=== PATIENT | female | born 1985 | race Caucasian/White ===

== ENCOUNTER 2023-01-16 20:53 | Emergency (ER) | payer OTHER, SELFPAY ==
--- NOTE | ~2023-01-16 | XR_ITS ---
EXAMINATION: XR chest 2V DATE: 01/16/2023 21:30 INDICATION: Chest pain and shortness of breath TECHNIQUE: PA and lateral views of the chest are obtained. COMPARISON: None available FINDINGS: The lungs are free of acute opacities. No pleural effusion or pneumothorax. The cardiomedia stinal silhouette is normal. The visualized bones and soft tissues are unremarkable. IMPRESSION: 1. No acute cardiopulmonary abnormality. Reviewed, dictated and finalized at location F.
--- NOTE | ~2023-01-16 | XR_ITS ---
AP and lateral views of the right tibia/fibula Clinical History: Trauma Findings: No acute fracture or dislocation is seen. Osseous alignment is anatomic. Joint spaces are p reserved without significant erosive or degenerative change. Soft tissues are unremarkable. Impression: Unremarkable right tib-fib radiographs. Reviewed, dictated and finalized at [facility]. Impression: Unremarkable right tib-fib radiographs.
--- NOTE | ~2023-01-16 | CT_ITS ---
Noncontrast CT scan of the cervical spine Technique: Multiple contiguous axial [address] images of the cervical spine were obtained and rec onstructed in 2D sagittal and coronal planes on the acquisition scanner. Dose reduction technique was used on this scan by utilizing automated exposure control, adjustment of the mA and/or kV according to patient size. The dose-length product (DLP) was 168.58 mGy-cm. Clinical History: Pain Findings: No fractures or dislocations. Unremarkable visualized bony structures. The intervertebral disc spaces are preserved. No prevertebral soft tissue swelling. Impression: No fracture or subluxation of the cervical spine. Reviewed, dictated and finalized at location M. Impression: No fracture or subluxation of the cervical spine.
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
[2023-01-16 20:59] VITALS: PULSE 79; RESP 19; TEMP 36.8; O2SAT 100
[2023-01-17] VITALS (7 sets, daily range): BP systolic 103–126; BP diastolic 53–81; PULSE 59–85; RESP 12–20; TEMP 36.8; O2SAT 95–100
--- NOTE | 2023-01-17 02:01 | ECG_ITS ---
Measurements Intervals [place] Rate: 60 P: 65 WI: 114 QRS: 9 QRSD: 90 T: 28 QT: 427 QTc: 429 Interpretive Statements SINUS RHYTHM WITH SHORT WI INTERVAL WITH OCCASIONAL VENTRICULAR PREMATURE COMPLEXES ANTEROSEPTAL ST T-WAVE ABNORMALITY, CONSIDER ISCHEMIA ABNORMAL ECG NO PREVIOUS ECG AVAILABLE FOR COMPARISON Electronically Signed On 01-17-2023 10:31:37 CDT by Kristian Kilgore M.D.
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
[2023-01-17] MEDS: HYDROcodone/acetaminophen (*CRX) 5-325 MG TABLET 1 TAB PO (02:23)
[2023-01-17 02:56] LABS: Troponin I < 0.012 ng/mL (0.000-0.034)
== END 2023-01-17 06:49 | disposition home or self-care (01) ==
PROVIDERS: Physician Assistant; Emergency Provider Emergency Medicine; PCP Family Medicine
DX: M54.2 Cervicalgia (principal); R07.81 Pleurodynia; V43.52XA Car driver injured in collision with other type car in traffic accident, initial encounter
CPT/HCPCS: 36415; 71046; 71250; 72125; 73590; 73630; 81025; 84484; 93005; 99284; A9270; L0140

== ENCOUNTER 2023-10-10 09:12 | Emergency (ER) | payer OTHER, SELFPAY ==
[2023-10-10 09:22] VITALS: BP 117/65; PULSE 104; RESP 16; TEMP 36.4; O2SAT 100
[2023-10-10 09:37] LABS: Basophils Percent Auto 0.1 % (0.2-1.2); Eosinophils Absolute Auto 0.1 K/mm3 (0-0.3); Eosinophils Percent Auto 1.6 % (0-4.4); Hematocrit 39.2 % (37.0-47.0); Immature Granulocyte Absolute 0.02 K/mm3 (0.00-0.031); Immature Granulocyte Percent A 0.3 % (0-0.5); Lymphocytes Absolute Auto 1.44 K/mm3 (0.9-3.2); Lymphocytes Percent Auto 20.7 % (18.3-44.2); Mean Corpuscular HGB Conc 33.2 g/dl (32-36); Mean Corpuscular Hemoglobin 30.5 pg (26-34); Mean Platelet Volume 10.9 fl (7.4-10.4); Monocytes Absolute Auto 0.3 K/mm3 (0.1-0.6); Monocytes Percent Auto 4.9 % (2.6-8.5); Neutrophils Percent Auto 72.4 % (45.5-73.1); Platelet Count Result 198 k/mm3 (150-375); Red Blood Count 4.26 M/mm3 (4.2-5.4); Red Cell Distribution Width 12.8 % (11.5-14.5)
[2023-10-10 09:49] LABS: Alanine Aminotransferase 20 U/L (6-35); Albumin Level 4.5 g/dL (3.5-5.1); Alkaline Phosphatase 50 U/L (38-126); Anion Gap 8 mmol/L (4-12); Aspartate Amino Transferase 28 U/L (14-36); Bilirubin,Total 0.4 mg/dL (0.2-1.3); Blood Urea Nitrogen 9 mg/dL (7-17); Calcium 9.1 mg/dL (8.4-10.2); Carbon Dioxide 24 mmol/L (22-30); Chloride 105 mmol/L (98-107); Estimated CRCL calculation 92 ml/min; Estimated Glomerular Filt Rate > 60; Glucose 78 mg/dL (65-110); Lipase 89 U/L (23-300); Potassium 3.4 mmol/L (3.4-5.0); Sodium 137 mmol/L (137-145)
[2023-10-10] MEDS: SODIUM CHLORIDE 0.9% IV 1,000 ML 999 ML IV CONT (10:47)
[2023-10-10] MEDS: METOCLOPRAMIDE HCL INJ 10 MG/2 ML VIAL IV PUSH (10:48)
[2023-10-10 11:15] LABS: Appearance Urine Clear (Clear); Bilirubin Urine Negative (Negative); Blood Urine Negative (Negative); Color Urine Yellow (Yellow); Glucose Urine UA Negative (Negative); Ketones Urine Negative (Negative); Leukocyte Esterase Ur Negative LEU/UL (Negative); Nitrate Urine Negative (Negative); Protein Urine Negative (Negative); Specific Grav Ur 1.007 (1.001-1.035); Urobilinogen Urine 0.2 mg/dL (<2.0); pH Urine 7.5 (5.0-9.0)
[2023-10-10 11:17] LABS: Add Urine Microscopic? NO
[2023-10-10 11:45] VITALS: BP 95/55; PULSE 72; RESP 16; O2SAT 100
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
[2023-10-10 12:17] VITALS: BP 97/48; PULSE 70; RESP 18; O2SAT 100
== END 2023-10-10 12:18 | disposition home or self-care (01) ==
PROVIDERS: Emergency Medicine; Emergency Provider Nurse Practitioner Family; PCP Family Medicine
DX: O21.0 Mild hyperemesis gravidarum (principal); Z3A.10 10 weeks gestation of pregnancy
CPT/HCPCS: 36415; 80053; 81003; 81025; 83690; 85025; 96361; 96374; 99284; J2765; J7030

== ENCOUNTER 2024-03-20 10:30 | Outpatient (CLI) | payer BC, SELFPAY ==
--- NOTE | ~2024-03-20 | US_ITS ---
EXAMINATION: US right upper quadrant DATE: 03/20/2024 11:26 INDICATION: Right upper quadrant abdominal pain. TECHNIQUE: Multiple grayscale and Doppler ultrasound images of the abdomen were obtained. COMPARISON: None FINDINGS: The visualized portions of the head and body of the pancreas are normal. The liver is chuck l without focal lesion. There is normal flow in main portal vein. The gallbladder is normal in size. No gallstones or gallbladder wall thickening. There are multiple pulse measuring up to 3 mm in the ga llbladder, likely benign cholesterol polyps needing no follow-up. No gallbladder wall thickening or s onographic Villarreal sign. The common duct is normal and measures 2 mm. IMPRESSION: 1. No etiology for the patient's symptoms. Reviewed, dictated and finalized at location A. [employer]
[2024-03-20 11:14] LABS: Basophils Percent Auto 0.2 % (0.2-1.2); Eosinophils Absolute Auto 0.1 K/mm3 (0-0.3); Eosinophils Percent Auto 1.3 % (0-4.4); Hematocrit 32.3 % (37.0-47.0); Hemoglobin 10.5 g/dL (12.0-15.0); Immature Granulocyte Absolute 0.01 K/mm3 (0.00-0.031); Immature Granulocyte Percent A 0.2 % (0-0.5); Lymphocytes Absolute Auto 0.97 K/mm3 (0.9-3.2); Lymphocytes Percent Auto 15.2 % (18.3-44.2); Mean Corpuscular HGB Conc 32.5 g/dl (32-36); Mean Corpuscular Hemoglobin 30.9 pg (26-34); Mean Platelet Volume 10.9 fl (7.4-10.4); Monocytes Absolute Auto 0.3 K/mm3 (0.1-0.6); Monocytes Percent Auto 4.9 % (2.6-8.5); Neutrophils Percent Auto 78.2 % (45.5-73.1); Platelet Count Result 170 k/mm3 (150-375); Red Cell Distribution Width 13.8 % (11.5-14.5); White Blood Count 6.4 K/mm3 (4.5-10.0)
[2024-03-20 12:23] LABS: Iron 45 ug/dL (37-170); Percent Iron Saturation 9 % (20-50)
== END 2024-03-20 10:31 | disposition home or self-care (01) ==
LOC: ANHIMG 10:32
PROVIDERS: PCP Family Medicine; Visit Provider Advanced Practice Midwife
DX: R10.11 Right upper quadrant pain (principal); O99.019 Anemia complicating pregnancy, unspecified trimester; Z3A.00 Weeks of gestation of pregnancy not specified
CPT/HCPCS: 36415; 76705; 83540; 83550; 85025